=== PATIENT | male | born 1970 | race Caucasian/White ===

== ENCOUNTER 2017-02-23 17:17 | Emergency (ER) | payer SELFPAY ==
[2017-02-23 17:53] VITALS: BP 132/78
[2017-02-23] MEDS ORDERED: Acetaminophen TAB* 325 MG PO ONE (19:22)
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
== END 2017-02-23 21:42 | disposition home or self-care (01) ==
LOC: ED 17:17
DX: S92.911A Unspecified fracture of right toe(s), initial encounter for closed fracture (principal); S70.02XA Contusion of left hip, initial encounter; T14.8 Other injury of unspecified body region; V28.4XXA Motorcycle driver injured in noncollision transport accident in traffic accident, initial encounter; Y93.89 Activity, other specified; Y92.89 Other specified places as the place of occurrence of the external cause
CPT/HCPCS: 99282; A9270-GY

== ENCOUNTER 2017-05-01 19:15 | Emergency (ER) | payer BC ==
--- NOTE | 2017-05-01 20:40 | ED ---
Heather Kerr Rebecca, scribed for iFsh Long MD on 05/01/17 at 1939 . Throat Pain/Nasal Congestion - HPI Summary HPI Summary: Pt is a 46 y/o M who presents to ED c/o FB sensation in the throat. Tonight at approximately 1830 while eating chicken for dinner he reports getting a portion of food lodged in the throat. There is no associated pain, ranked 0/10. Sx aggravated and alleviated by nothing, unchanged by water. He is unable to swallow any water. Prior similar episode about 1.5 years ago. - History of Current Complaint Chief Complaint: EDForeignBodyEsophag Time Seen by Provider: 05/01/17 19:33 Hx Obtained From: Patient Onset/Duration: Still Present Associated Signs And Symptoms: Positive: FB Sensation Cough: None Related History: Other (Noted In Comments) - Similar episode about 1.5 years ago - Allergies/Home Medications Allergies/Adverse Reactions: Allergies Allergy/AdvReac Type Severity Reaction Status Date / Time No Known Allergies Allergy Verified 04/28/16 21:03 PMH/Surg Hx/FS Hx/Imm Hx Endocrine/Hematology History: Denies: Hx Anticoagulant Therapy, Hx Blood Disorders Cardiovascular History: Reports: Hx Hypertension Infectious Disease History: No Infectious Disease History: Denies: Traveled Outside the [place] in Last 30 Days - Family History Known Family History: Negative: Cardiac Disease, Hypertension, Diabetes - Social History Alcohol Use: None Hx Substance Use: No Substance Use Type: Reports: None Hx Tobacco Use: No Smoking Status (MU): Never Smoked Tobacco Review of Systems Negative: Fever Positive: Other - FB sensation in the throat All Other Systems Reviewed And Are Negative: Yes Physical Exam Triage Information Reviewed: Yes Vital Signs On Initial Exam: Initial Vitals Temp Pulse Resp BP Pulse Ox 98.8 F 72 18 163/89 95 05/01/17 19:18 05/01/17 19:18 05/01/17 19:18 05/01/17 19:18 05/01/17 19:18 Vital Signs Reviewed: Yes Appearance: Positive: Well-Appearing, No Pain Distress, Well-Nourished Skin: Positive: Warm Head/Face: Positive: Normal Head/Face Inspection Eyes: Positive: AURELIO ENT: Positive: Hearing grossly normal Neck: Positive: Supple Respiratory/Lung Sounds: Positive: Clear to Auscultation, Breath Sounds Present Cardiovascular: Positive: RRR Abdomen Description: Positive: Nontender, Soft Bowel Sounds: Positive: Present Musculoskeletal: Positive: Strength/ROM Intact Neurological: Positive: Alert, Oriented to Person Place, Time Diagnostics - Vital Signs Vital Signs Temp Pulse Resp BP Pulse Ox 05/01/17 19:18 98.8 F 72 18 163/89 95 - Laboratory Lab Statement: Any lab studies that have been ordered have been reviewed, and results considered in the medical decision making process. Re-Evaluation - Re-Evaluation First Eval Change: Improved - pt seen and tx in ed by gi EENT Course/Dx - Course Assessment/Plan: Pt is a 46 y/o M who presents to ED c/o FB sensation in the throat. Tonight at approximately 1830 while eating chicken for dinner he reports getting a portion of food lodged in the throat. There is no associated pain, ranked 0/10. Sx aggravated and alleviated by nothing, unchanged by water. He is unable to swallow any water. Prior similar episode about 1.5 years ago. Elevated BP noted and advised to f/u with PCP. - Diagnoses Provider Diagnoses: Foreign body in esophagus - Provider Notifications Discussed Care Of Patient With: Manjeet Barnard Time Discussed With Above Provider: 19:54 Instructed by Provider To: Other - Will evaluate the pt in the ED. Discharge - Discharge Plan Condition: Improved Disposition: HOME Referrals: Jones Lopez MD [Primary Care Provider] - The documentation as recorded by the Heather gale Rebecca accurately reflects the service I personally performed and the decisions made by me, Fish Long MD.
--- NOTE | 2017-05-01 20:46 | HP ---
H&P (Free Text) History and Physical: Reason for consultation HPI: Mr. Almaguer is a 46 year old male with past medical history significant for previous foreign body impactions who presents to ER complaining of inability to swallow. State he ate chicken approximately 6:30pm and felt it become stuck. Has been unable to swallow water and tolerate his own saliva. Had similar symptoms in 2016 where he underwent an EGD with foreign body removal. He was told that use steroid inhaler but recently stopped. Denies any chest pain , shortness of breath, or dizziness. ROS: 10 point review of systems performed is negative unless specified in HPI PMH: History of recurrent dysphagia 2/2 strictures vs EOE ALL: NKDA Initial Vital Signs Temp 98.8 F 05/01/17 19:18 Pulse 72 05/01/17 19:18 Resp 18 05/01/17 19:18 BP 163/89 05/01/17 19:18 Pulse Ox 95 05/01/17 19:18 GEN: Appears well in no acute distress HEENT: Anicteric sclera CHEST clear bilaterally CV Regular rate rhythm s1 s2 no rubs or gallops ABD: soft, nontender normoactive bowel sounds EXT: no lower extremity edema Impression: 46 year old male with history of recurrent dysphagia here with foreign body within the esophagus. Recommendations: 1. Keep NPO for now and will plan for urgent EGD with foreign body removal 2. Follow up recommendation post-procedure.
[2017-05-01] MEDS ORDERED: Midazolam* 1 MG/ML 10 ML VIAL (10 MG) ONE (22:04)
[2017-05-01] MEDS ORDERED: fentaNYL* 50 MCG/ML 2 ML VIAL (100 MCG VIAL) ONE (22:04)
[2017-05-01 23:09] VITALS: BP 129/76
--- NOTE | 2017-05-02 02:38 | PRO ---
DATE OF PROCEDURE: 05/01/17 - EMERGENCY DEPT PROCEDURE: EGD with foreign body removal using a Hawk Net. NARRATIVE: This is a 46-year-old male with history of recurrent dysphagia and previous food impactions, who presents to the ER with dysphagia after eating chicken at 6:30 p.m. The patient has been unable to tolerate any liquids, but has been able to tolerate his saliva. He is in the ER, in which GI was consulted for evaluation and urgent endoscopy. MEDICATIONS GIVEN: Versed 6 mg, Fentanyl 75 mcg. DESCRIPTION OF PROCEDURE: After the risks and benefits of the procedure were discussed in detail, he verbalized understanding and agreed to the procedure. Informed consent was obtained. Time-out was then performed. The patient was placed in the left lateral decubitus position and EGD was performed. A therapeutic gastroscope was advanced with ease into the mid esophagus and in the distal esophagus, there was evidence of a large amount of food present. Next, I advanced a netted snare around food bolus and was able to remove a large amount of the meat from the esophagus. The meat as well as Hawk Net as well as the gastroscope was removed from the patient and next, I re-advanced the therapeutic gastroscope and encountered the remaining food residue and was able to push the remaining food gently down into the stomach. The fundus was notable for food that was recently ingested; otherwise, no other abnormalities were seen. The gastroscope was then withdrawn again into the distal esophagus and a mild subtle esophageal ring was noted as well as linear furrows throughout the esophagus suspicious for eosinophilic esophagitis. There was no evidence of bleeding or esophageal tears. The gastroscope was removed from the patient. There were no immediate complications. The patient was monitored in the emergency department for further management. IMPRESSION: 1. Foreign body within the esophagus, status post removal. 2. Eosinophilic esophagitis. RECOMMENDATIONS: The patient should be started on twice daily acid suppression in which he will be prescribed this for the next 2 weeks and then continue at once daily. He was instructed to do a full liquid diet for the next 24 hours and resume solid food on Tuesday. [id number] #: [id number] [id number]
== END 2017-05-01 23:11 | disposition home or self-care (01) ==
LOC: ED 19:15
DX: T18.128A Food in esophagus causing other injury, initial encounter (principal); X58.XXXA Exposure to other specified factors, initial encounter; Y92.9 Unspecified place or not applicable; I10 Essential (primary) hypertension
CPT/HCPCS: 96374; 96375; 99156; 99157; 99282; J2250; J3010

== ENCOUNTER 2018-07-17 09:17 | Emergency (ER) | payer BC ==
[2018-07-17] MEDS ORDERED: Pantoprazole IV* 40 MG IV ONE (09:26)
[2018-07-17] MEDS ORDERED: NS 0.9% 1000 ML* 1,000 ML IV ONE (09:26)
--- NOTE | 2018-07-17 09:40 | ED ---
Abdominal Pain/Male - HPI Summary HPI Summary: This pt is a 48 y/o male presenting to [facility] c/o epigastric abd pain since last night. Pt reports his abd pain woke him at 12:30 this morning from sleep. He notes he was diaphoretic upon waking up. Pt took ibuprofen and his abd pain subsided. He states his abd pain returned at around 04:00 and the pain woke him up again. He describes abd pain as dull and constant. Denies crampy pain. Denies fever, nausea, vomiting, constipation, diarrhea, chest pain, SOB. He notes his last bowel movement was last night and was normal. Currently he rates his pain 2/10 in severity. Pt has never had this pain in the past. - History of Current Complaint Chief Complaint: EDAbdPain Stated Complaint: ABD PAIN Onset/Duration: Sudden Onset, Still Present Timing: Constant, Lasting Hours Severity Initially: Moderate Severity Currently: Mild Pain Intensity: 2 Pain Scale Used: 0-10 Numeric Location: Epigastric Radiates: No Character: Dull Aggravating Factor(s): Nothing Alleviating Factor(s): Nothing Associated Signs And Symptoms: Positive: Diaphoresis. Negative: Fever, Chest Pain, Constipation, Nausea, Vomiting, Diarrhea - Allergies/Home Medications Allergies/Adverse Reactions: Allergies Allergy/AdvReac Type Severity Reaction Status Date / Time No Known Allergies Allergy Verified 07/17/18 09:23 Home Medications: Home Medications Fluticasone HFA 220 mcg(NF) [Flovent Hfa 220 Mcg(NF)] 1 puff INH DAILY 07/17/18 [History Confirmed 07/17/18] Lisinopril 10 mg PO DAILY 07/17/18 [History Confirmed 07/17/18] PMH/Surg Hx/FS Hx/Imm Hx Endocrine/Hematology History: Denies: Hx Anticoagulant Therapy, Hx Blood Disorders, Hx Diabetes Cardiovascular History: Reports: Hx Hypertension Infectious Disease History: No Infectious Disease History: Denies: Traveled Outside the [place] in Last 30 Days - Family History Known Family History: Positive: Hypertension - father Negative: Cardiac Disease, Diabetes Family History: Father with high cholesterol. Mother with cancer. - Social History Alcohol Use: Rare Hx Substance Use: No Substance Use Type: Reports: None Hx Tobacco Use: No Smoking Status (MU): Never Smoked Tobacco Review of Systems Positive: Skin Diaphoresis. Negative: Fever, Chills Negative: Chest Pain Negative: Shortness Of Breath Positive: Abdominal Pain. Negative: Vomiting, Diarrhea, Nausea, Other - constipation All Other Systems Reviewed And Are Negative: Yes Physical Exam - Summary Physical Exam Summary: VITAL SIGNS: Reviewed. GENERAL: Patient is a well-developed and nourished male who is lying comfortable in the stretcher. Patient is not in any acute respiratory distress. HEAD AND FACE: Normocephalic and atraumatic. EYES: PERRLA, EOMI x 2, No injected conjunctiva. EARS: Hearing grossly intact. Ear canals and tympanic membranes are WNL. MOUTH: Oropharynx within normal limits. NECK: Supple, trachea is midline, no adenopathy, no JVD. CHEST: Symmetric, no tenderness at palpation LUNGS: Clear to auscultation bilaterally. No wheezing or crackles. CVS: RRR, S1 and S2 present, no murmurs or gallops appreciated. ABDOMEN: Soft. Periumbilical tenderness. No signs of distention. Positive bowel sounds. No rebound no guarding, and no masses palpated. No abdominal bruit or pulsations. EXTREMITIES: FROM in all major joints, no edema, no cyanosis or clubbing. NEURO: Alert and oriented x 3. No acute neurological deficits. Speech is normal. SKIN: Dry and warm Triage Information Reviewed: Yes Vital Signs On Initial Exam: Initial Vitals Temp Pulse Resp BP Pulse Ox 98.5 F 74 16 157/93 97 07/17/18 09:19 07/17/18 09:19 07/17/18 09:19 07/17/18 09:19 07/17/18 09:19 Vital Signs Reviewed: Yes Diagnostics - Vital Signs Vital Signs Temp Pulse Resp BP Pulse Ox 07/17/18 09:19 98.5 F 74 16 157/93 97 - Laboratory Result Diagrams: 07/17/18 09:40 07/17/18 09:40 Lab Statement: Any lab studies that have been ordered have been reviewed, and results considered in the medical decision making process. - Radiology Abdomen XR Radiology Interpretation Completed By: Radiologist Summary of Radiographic Findings: IMPRESSION: Stool is present throughout the colon. No free air or obstruction is noted. Dr. Aviles has reviewed this report. - EKG 09:40 Cardiac Rate: NL - at 73 bpm EKG Rhythm: Sinus Rhythm Summary of EKG Findings: No ST elevations. Re-Evaluation - Re-Evaluation First Eval Re-Evaluation Time: 11:02 Comment: Pt reports feeling better. Second Eval Re-Evaluation Time: 11:54 Comment: I reviewed the lab and XR results with the pt. He will be discharged home. Abdominal Pain Fem Course/Dx - Course Assessment/Plan: This pt is a 48 y/o male presenting [facility] c/o epigastric abd pain since last night. Pt reports his abd pain woke him at 12:30 this morning from sleep. He notes he was diaphoretic upon waking up. Pt took ibuprofen and his abd pain subsided. He states his abd pain returned at around 04:00 and the pain woke him up again. He describes abd pain as dull and constant. Denies crampy pain. Denies fever, nausea, vomiting, constipation, diarrhea, chest pain, SOB. He notes his last bowel movement was last night and was normal. Currently he rates his pain 2/10 in severity. Pt has never had this pain in the past. Blood work without any significant abnormality, except for CRP of 10.2. Magnesium is 1.8. Patient was given magnesium PO. Abdomen x- ray impression: Stool is present throughout the colon. No free air or obstruction is noted. EKG shows a normal sinus rhythm with no ST elevations. In the ED course the patient was given IV fluids and the patient was given Pepcid and the patients symptoms have significantly improved. On reassessment the patient reports that the pain has resolved. The patient is pain-free. We discussed the benefits and risk of an abdominopelvic CT however because of his symptoms have resolved he declined a CT at this time. He was instructed to return to the emergency room if the symptoms return, if he develops any nausea vomiting, chest patients develop palpitations. The patient understands and agrees. All questions were answered and the patient doesnt have any further concerns. Patient is hemodynamically stable, alert and oriented 3. - Diagnoses Differential Diagnosis/HQI/PQRI: Bowel Obstruction, Constipation Provider Diagnoses: Epigastric pain Discharge - Sign-Out/Discharge Documenting (check all that apply): Patient Departure - Discharge home - Discharge Plan Condition: Stable Disposition: HOME Prescriptions: Omeprazole CAP* [Prilosec CAP* 20 MG] 20 mg PO DAILY #14 cap. Patient Education Materials: Epigastric Pain (ED) Referrals: Jones Lopez MD [Primary Care Provider] - Additional Instructions: FOLLOW UP WITH YOUR PRIMARY CARE PROVIDER WITHIN ONE WEEK FOR HIGH BLOOD PRESSURE NOTED TODAY. RETURN TO THE ED FOR ANY NEW OR WORSENING SYMPTOMS. - Billing Disposition and Condition Condition: STABLE Disposition: Home - Attestation Statements Document Initiated by Scribe: Yes Documenting Scribe: Holly Brooks Provider For Whom Scribe is Documenting (Include Credential): Reji Aviles MD Scribe Attestation: IHolly, scribed for Reji Aviles MD on 07/17/18 at 1826. Scribe Documentation Reviewed: Yes Provider Attestation: The documentation as recorded by the Holly gale accurately reflects the service I personally performed and the decisions made by me, Reji Aviles MD
[2018-07-17 09:59] LABS: ABS Basophils 0 10^3/ul (0-0.2); ABS Eosinophils 0.2 10^3/ul (0-0.6); ABS Lymphocytes 0.7 10^3/ul (1.0-4.8); ABS Monocytes 0.5 10^3/ul (0-0.8); ABS Neutrophils 3.6 10^3/ul (1.5-7.7); ABS Nucleated RBC 0 10^3/ul; Eosinophil % 3.6 % (0-6); Hematocrit 39 % (42-52); Hemoglobin 13.3 g/dl (14.0-18.0); Lymphocyte % 14.6 % (25-47); Mean Corpuscular HGB Conc 34 g/dl (31-36); Mean Corpuscular Hemoglobin 28 pg (27-31); Mean Corpuscular Volume 84 fL (80-94); Nucleated Red Blood Cells % 0; Platelet Count 219 10^3/ul (150-450); Red Blood Count 4.67 10^6/ul (4.00-5.40); Red Cell Distribution Width 13 % (10.5-15); White Blood Count 5.1 10^3/ul (3.5-10.8)
[2018-07-17 10:14] LABS: EGFR Non-African American 98.4 (>60)
[2018-07-17] MEDS ORDERED: Magnesium Oxide TAB* 400 MG PO ONE (11:37)
[2018-07-17 12:08] VITALS: BP 125/60
[2018-07-17 12:19] LABS: Urine Appearance Clear; Urine Blood 2+ (Negative); Urine Color Yellow; Urine Ketones Negative (Negative); Urine Protein Negative (Negative); Urine Red Blood Cell 2+(6-10/hpf) (Absent); Urine Specific Gravity 1.017 (1.010-1.030); Urine Urobilinogen Negative (Negative); Urine White Blood Cell Absent (Absent)
== END 2018-07-17 12:08 | disposition home or self-care (01) ==
LOC: ED 09:17
DX: R10.13 Epigastric pain (principal); I10 Essential (primary) hypertension
CPT/HCPCS: 36415; 74019; 80053; 81003; 81015; 82150; 82550; 83605; 83690; 83735; 84484; 85025; 86140; 93005; 96361; 96365; 99283